=== PATIENT | female | born 1975 | race Caucasian/White ===

== ENCOUNTER 2017-03-20 18:37 | Emergency (ER) | payer MEDICAID ==
[~2017-03-20] VITALS: Ht 160 cm; Wt 80.0 kg
[~2017-03-20 18:37] MED LIST: Z.0.NO CURRENT MEDS
[2017-03-20 18:39] VITALS: BP 174/100; PULSE 107; RESP 18; TEMP 98.2; O2SAT 98
[2017-03-20 18:50] VITALS: BP 155/67; PULSE 106; RESP 18; O2SAT 98
--- NOTE | 2017-03-20 19:14 | PD ---
HPI Chief Complaint: Fall Time Seen by Provider: 19:14 Travel History International Travel<30 days: No Contact w/Intl Traveler<30days: No Traveled to known affect area: No History of Present Illness HPI 41-year-old female presents to the emergency department for evaluation of lower back pain and left ankle pain status post fall from the kitchen counter. Patient states that she was standing on top of her kitchen counter trying to reach a high cabinet and as she was climbing back down she stuck her left foot out and fell backward onto the floor landing on her buttocks. States that she somehow twisted her left ankle in the fall. Denies head trauma or loss of consciousness. States that she's had significant lower back pain radiating to bilateral posterior thighs since the fall. She denies any numbness or tingling , saddle anesthesia, bowel or bladder difficulties. States that she took Tylenol with minimal improvement of symptoms. Pain is aggravated with movement. Denies any alleviating factors. Moderate in severity. No other complaints. Denies , last menstrual period 2 weeks ago. PFS Past Medical History Anxiety: Yes Depression: Yes Diminished Hearing: No Migraines: Yes Tubal Ligation: Yes Past Surgical History Cholecystectomy: Yes Oral Surgery: Yes (ALL TEETH REMOVED) Social History Alcohol Use: No Tobacco Use: Yes (2-3 DAY) Substance Use: No Allergies-Medications (Allergen,Severity, Reaction): Coded Allergies: No Known Allergies (Verified , 03/20/17) Reported Meds & Prescriptions Reported Meds & Active Scripts Active Reported No Current Meds (Miscellaneous Medication) [facility] Review of Systems Except as stated in HPI: all other systems reviewed are Neg Physical Exam Narrative GENERAL: Well-nourished and well-developed pleasant female patient in no acute distress. SKIN: No obvious lacerations or abrasions noted. HEAD: Normocephalic and atraumatic. No bony point tenderness or crepitus noted throughout the scalp and facial bones. EYES: No scleral icterus, injection, or drainage. PERRLA. EOMI. No hyphema present. ENT: No septal hematoma or hemotympanum noted. Oropharynx is clear and the airway is patent. NECK: Supple and the trachea is midline. No obvious deformities, crepitus, or midline tenderness noted. CARDIOVASCULAR: Regular rate and rhythm. RESPIRATORY: Breath sounds are equal bilaterally with no accessory muscle use, wheezing, rhonchi, or crackles. MUSCULOSKELETAL: No obvious deformities, swelling, cyanosis, or ecchymosis is present throughout the upper and lower extremities. Patient has full range of motion without any signs of neurovascular compromise. Strength 5/5 upper and lower extremities equal bilaterally. BACK: Tenderness to palpation of lumbar spine, sacrum and coccyx. No obvious deformities or crepitus noted throughout the thoracic and lumbar vertebrae. NEUROLOGICAL: Awake, alert, and oriented. Normal speech and gait. Cranial nerves are grossly intact. Data Data Last Documented VS Vital Signs Date Time Temp Pulse Resp B/P Pulse Ox O2 Delivery O2 Flow Rate FiO2 03/20/17 20:29 16 03/20/17 18:50 106 155/67 98 Room Air 03/20/17 18:39 98.2 Orders Ed Urine Pregnancytest Poc (03/20/17 19:12) Ct Lumb Spine W/O Contrast (03/20/17 19:12) Ankle, Complete ([id number]) (03/20/17 19:12) Acetamin-Hydrocod 325-5 Mg ([place] 5-325 (03/20/17 19:15) Ketorolac Inj (Toradol Inj) (03/20/17 20:45) MDM Medical Decision Making Medical Screen Exam Complete: Yes Emergency Medical Condition: Yes Differential Diagnosis Fracture versus contusion versus sprain versus discogenic pain Narrative Course 41-year-old female presents to the emergency department for evaluation of low back pain status post fall from the kitchen counter onto her buttocks. Patient is afebrile, vital signs are stable. No tremor loss of consciousness. No neurologic deficits. CT imaging of the lumbar spine has been ordered and is pending. X-ray imaging of the left ankle has been ordered and is pending. Patient is administered Lortab 53 25 mg orally. X-ray of the left ankle shows mild soft tissue swelling over lateral malleolus with no acute fracture or malalignment. CT scan of the lumbar spine is negative for any acute abnormality. Discussed with the patient that she has no fractures or acute findings of lumbar spine. Patient will be discharged with naproxen and Lortab. Discussed supportive care. Advised to follow up as an outpatient with her PCP. Patient verbalizes understanding and agreement with treatment plan. I discussed the case with my attending physician Dr. Ch who is aware of the patients history, physical examination findings, and treatment plan. Diagnosis Primary Impression: Acute low back pain Qualified Code: M54.5 - Acute midline low back pain without sciatica Additional Impressions: Left ankle sprain Qualified Code: S93.402A - Sprain of left ankle, unspecified ligament, initial encounter Fall Qualified Code: W19.XXXA - Fall, initial encounter Referrals: Primary Care Physician Patient Instructions: Acute Low Back Pain (ED), General Instructions Departure Forms: Tests/Procedures, Work Release Enter return to work date: Mar 24, 2017 Additional Instructions: Rest. Apply ice for 20 minutes on, 20 minutes off. Take medications as prescribed with food and a full glass of water. Do not take Lortab with alcohol or while driving. Follow-up with your Primary Care Physician. Return to the ED for any acute worsening of symptoms. Med/Other Pt SpecificInfo: Prescription(s) given Scripts Naproxen 500 Mg [id number] Mg PO BID 7 Days Ref 0 Prov:Jeovany Ch MD 03/20/17 Hydrocodone-Acetaminophen (Lortab)5-325 Mg Tab1 Tab PO Q6H PRN (PAIN GREATER THAN 6) #20 TAB Ref 0 Prov:Jeovany Ch MD 03/20/17 Disposition: 01 DISCHARGE HOME Condition: Stable Karley Garcia Mar 20, 2017 19:14
[2017-03-20] MEDS ORDERED: ACETAMINOPHEN/HYDROcodone 325 MG/5 MG TAB PO ONE (19:15)
--- NOTE | 2017-03-20 19:35 | RADRPT ---
EXAM DATE/TIME: 03/20/2017 19:21 [facility] COMPARISON: No previous studies available for comparison. INDICATIONS : Left ankle pain. Patient fell backwards off a stool. Pain around whole ankle. MEDICAL HISTORY : None. SURGICAL HISTORY : None. ENCOUNTER: Initial ACUITY: 1 day PAIN SCORE: 10/10 LOCATION: Left ankle. FINDINGS: Three view exam was performed of the left ankle. The bony structures are in normal alignment. No ev idence of acute fracture or malalignment. There is mild soft tissue swelling over the lateral malleol us. The ankle mortise is intact. No radiopaque foreign bodies are seen. Bony mineralization is norm al. CONCLUSION: Mild soft tissue swelling over lateral malleolus with no acute fracture or malalignment. Chuck Yadav MD on March 20, 2017 at 19:33 Board Certified Radiologist. This report was verified electronically.
[2017-03-20 20:29] VITALS: RESP 16
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
[2017-03-20] MEDS ORDERED: NAPR500T PO (20:42)
[2017-03-20] MEDS ORDERED: HYDR-3533 PO (20:42)
[2017-03-20] MEDS ORDERED: KETOROLAC TROMETHAMINE 60 MG/2 ML (IM) VIAL IM ONE (20:45)
== END 2017-03-20 21:11 | disposition home or self-care (01) ==
LOC: NEPD 18:37
DX: M54.5 Low back pain (principal); S93.402A Sprain of unspecified ligament of left ankle, initial encounter; W19.XXXA Unspecified fall, initial encounter
CPT/HCPCS: 72131; 73610; 84703; 96374; 99285; J1885

== ENCOUNTER 2017-05-06 00:36 | Emergency (ER) | payer MEDICAID ==
[~2017-05-06] VITALS: Ht 160 cm; Wt 77.0 kg
[~2017-05-06 00:36] MED LIST changes: +HYDR-3533 PO; +NAPR500T PO
[2017-05-06 00:56] VITALS: BP 145/85; PULSE 105; RESP 18; TEMP 98; O2SAT 97
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
[2017-05-06 02:03] VITALS: BP 152/109; PULSE 99; RESP 18; O2SAT 98
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
[2017-05-06] MEDS ORDERED: TETANUS/DIPHTHERIA TOXOID ADULT 0.5 ML VIAL IM ONE (02:15)
[2017-05-06] MEDS ORDERED: IBUPROFEN 800 MG TAB PO ONE (02:15)
[2017-05-06] MEDS ORDERED: ZOFR4TAB3 SL (02:28)
== END 2017-05-06 02:40 | disposition home or self-care (01) ==
LOC: NEPC 00:36
DX: S09.90XA Unspecified injury of head, initial encounter (principal); S01.01XA Laceration without foreign body of scalp, initial encounter; S39.012A Strain of muscle, fascia and tendon of lower back, initial encounter; F41.9 Anxiety disorder, unspecified; F32.9 Major depressive disorder, single episode, unspecified; F17.200 Nicotine dependence, unspecified, uncomplicated; Z23 Encounter for immunization; W18.00XA Striking against unspecified object with subsequent fall, initial encounter
CPT/HCPCS: 12001; 70450; 72072; 72100; 72125; 90471; 90714